=== PATIENT | male | born 1975 | race Caucasian/White ===

== ENCOUNTER 2017-06-08 05:14 | Day surgery (SDC) | payer OTHER ==
[~2017-06-08] VITALS: Ht 170.2 cm; Wt 77.1 kg
--- NOTE | ~2017-06-08 | O ---
[facility] [place] [address] OPERATIVE REPORT Name: HIRO OCHOA Room #: [facility]P [facility].#: [id number] Admission: 06/08/17 Attend Phys: Esequiel Huang MD Discharge: 06/08/17 Date of : 79 Report #: [id number] THIS REPORT FOR: //name// CC: Dr. 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 PROCEDURES: Enucleation of left eye with implantation of 20 mm Medpor sphere with muscles attached to implant, conjunctivoplasty, and temporary tarsorrhaphy. SURGEON: Esequiel Huang M.D. NEUROPSYCHOLOGY DIRECTOR: None. ANESTHESIA: General. COMPLICATIONS: None. 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 He presents today for removal of the eye for pain reasons. Informed consent was obtained to include but not limited to potential risk for loss of vision, bleeding, infection, failure to improve the problem, and the potential need for further surgery or treatment. DESCRIPTION OF PROCEDURE: The patient was taken to the operating room where general anesthesia was administered. The left socket was then anesthetized with Xylocaine with epinephrine mixed with Marcaine and Wydase. The patient was subsequently prepped and draped in the usual sterile fashion. He received a full course of antiemetics at the beginning of the case. A moistened sponge was placed on the right eye, while a lid speculum was placed on the left. A 360 degree conjunctival peritomy was performed. Extensive fibrosis of Tenon's conjunctiva was present from all of his prior interventions. It made the dissection challenging. As much conjunctival tissue as could be retained was retained as the dissection was undertaken. The oblique quadrants were bluntly dissected as best possible. Attention was first turned to the lateral rectus muscle. A muscle hook was passed underneath its insertion as best possible and it was subsequently cleaned [facility] [address] [place] [address] OPERATIVE REPORT Name: HIRO OCHOA Room #: [facility]P [facility]..#: [id number] Admission: 06/08/17 Attend Phys: Esequiel Huang MD Discharge: 06/08/17 Date of : 79 Report #: [id number] of surrounding connective tissue. A double armed 5-0 Vicryl suture was then passed through its insertions with locking bites at each margin. The muscle was then transected from the globe and dissected back posteriorly. The inferior, medial and superior rectus muscles were similarly isolated and dissected back into the socket. The oblique muscles were cut where they attached to the globe and allowed to retract back into the socket. A 5-0 silk suture was passed through its insertion of the lateral rectus muscle with a locking bite at each pass. The globe was then retracted anteriorly with the traction suture as the optic nerve was clamped for 3 minutes. The clamp was released and replaced again for 3 more minutes. The optic nerve was then cut with an enucleation scissor. Minimal bleeding ensued. A 20 mm sizing sphere could be placed in the socket, so a 20 mm Medpor implant was vacuum aspirated in antibiotic irrigation solution. It was subsequently reposited behind posterior Tenon's with an easy glide introducer. Posterior Tenon's was then closed over the implant with interrupted 5-0 Vicryl sutures. The medial and lateral rectus muscles were then drawn to each other and secured with interrupted 5-0 Vicryl sutures. The superior and inferior rectus muscles were then drawn to meet the medial and lateral rectus muscles with interrupted 5-0 Vicryl sutures. Anterior Tenon's was then closed with interrupted 6-0 buried Vicryl sutures. Conjunctiva was then closed after an extensive conjunctivoplasty was accomplished, rotating tissue from superotemporally. A 6-0 Vicryl suture was left in a running fashion. A medium-size conformer was placed followed by erythromycin ointment, which was placed on the conformer. A temporary tarsorrhaphy was fashioned from a short section of IV tubing and a double armed 5-0 nylon suture passed. The eye was then dressed with a Telfa pad, followed by 2 eye pads after an additional aliquot of anesthetic mixture was administered into the retrobulbar space. The patient was subsequently transported to the recovery area having tolerated the procedures well with no anesthetic or operative complications being noted. <ELECTRONICALLY SIGNED> By: Esequiel Huang MD 06/12/17 0617 1642 1718 Esequiel Huang MD /nt
--- NOTE | ~2017-06-08 | S ---
[facility] [place] [address] SURGICAL PATH RPT PROCEDURE Name: RASHAAD US Room #: [facility]P [facility]..#: [id number] Admission: 06/08/17 Date of : 79 Discharge: 06/08/17 Report #: [id number] Path Case #: [id number] PATHOLOGY REPORT COLLECTION DATE: 06/08/2017 RECEIVED DATE: 06/08/2017 SUBMITTING PHYS: Dr. Esequiel Huang OTHER PHYS: SPECIMEN(S) RECEIVED: A.Left eye ball * * * * * * * * * * * * FINAL DIAGNOSIS: A. Left eye ball: - Extensive calcification, ossification and fibrosis, consistent with end stage eye. PATHOLOGIST: Esteban Mckoy M.D. REPORT ELECTRONICALLY SIGNED BY: Esteban Mckoy M.D. DATE/TIME: 06/12/2017 12:56 * * * * * * * * * * * * GROSS PATHOLOGY: The specimen is received in formalin labeled "Rashaad Us, left eyeball, suture rizvi lateral rectus". Received is an oriented enucleation specimen measuring 2.0 x 2.0 x 2.0 cm in greatest dimensions with an attached optic nerve stump measuring 0.5 cm in diameter by 0.3 cm in length. The cornea is convex and opaque in appearance. Sectioning the specimen reveals no grossly distinct lens. The vitreous humor is severely calcified and adhered to the choroid layer. After the calcified vitreous humor, choroid layer has a pale driscoll to light brown and smooth appearance. A full-thickness longitudinal cross-section through the lateral rectus and optic nerve is submitted in cassette A1, following decalcification. An additional full-length cross-section without optic nerve is submitted in cassette A2. (CAA; 06/09/2017) CLINICAL HISTORY: Blind painful eye, left INITIAL CPT CODE(S): A; 59294, 04929 Professional services performed by [facility] at [facility] [address] [place] [address] SURGICAL PATH RPT PROCEDURE Name: RASHAAD US Room #: [facility]P [facility]..#: [id number] Admission: 06/08/17 Date of : 79 Discharge: 06/08/17 Report #: [id number] Path Case #: [id number] , [place] [address] Technical services performed by [place] [facility] at [address] [place] [address], [facility] [address] [place] [address]. [facility] [address] [place] [address] PHONE: [phone] DIRECTOR: Adin Li M.D. * * * END OF REPORT * * *
[~2017-06-08 05:14] MED LIST: CLARITIN10 MG PO; CYMBALTA60 MG PO; FLOVENT HFA 4444 MCG INH; LOSARTAN POTAS100 MG PO; LOVASTATIN 20 M20 MG PO; MIRALAX17 GM PO; NEURONTIN 300300 M1 PO; RISPERDAL 3 MG T3 M1 PO; TRAZODONE 150150 M1 PO; VENTOLIN HFA 1818 GM INH; ZANTAC 150MG T150 MG PO
[2017-06-08 14:28] VITALS: BP 127/86
== END 2017-06-08 17:25 | disposition home or self-care (01) ==
LOC: OR 05:14 → TBA 05:14 → OR 11:38
DX: H11.242 Scarring of conjunctiva, left eye (principal); H54.7 Unspecified visual loss; F31.9 Bipolar disorder, unspecified; F41.9 Anxiety disorder, unspecified; R56.9 Unspecified convulsions; F17.210 Nicotine dependence, cigarettes, uncomplicated; G80.9 Cerebral palsy, unspecified; I10 Essential (primary) hypertension; E78.00 Pure hypercholesterolemia, unspecified
CPT/HCPCS: 50010; 50101; 50386; 50398; 51636; 51854; 53500; 56527; 56528; 56531; 62110; 62900; 70005